=== PATIENT | female | born 1990 | race Hispanic/Latino ===

== ENCOUNTER 2018-12-12 19:39 | Emergency (ER) | payer SELFPAY ==
[~2018-12-12] VITALS: Ht 162.6 cm; Wt 69.1 kg
[2018-12-12] MEDS ORDERED: FAMOTIDINE 20 MG/2 ML VIAL IV STA (19:58)
--- NOTE | 2018-12-12 20:30 | Diagnostic Imaging Report ---
Frontal and lateral views of the chest. HISTORY: Chest pain COMPARISON: None available. DISCUSSION: Lungs: The lungs are well inflated. No evidence of a consolidative pneumonia or pulmonary alveolar edema. Pleura: No pleural effusion or pneumothorax. Heart and mediastinum: The cardiomediastinal silhouette appears unremarkable. Bones and soft tissues: Appear unremarkable. IMPRESSION: No acute radiographic abnormality. Signed by: Dr. Anil Marte D.O., M.M.M. on 12/12/2018 8:27 PM
== END 2018-12-12 21:00 | disposition home or self-care (01) ==
LOC: FSED 19:39
DX: R07.89 Other chest pain (principal)
CPT/HCPCS: 71046; 93005; 99283